=== PATIENT | female | born 1980 | race American Indian/Alaskan Native ===

== ENCOUNTER 2019-07-20 14:00 | Outpatient (CLI) | payer OTHER ==
--- NOTE | 2019-07-20 15:14 | Cat Scan Report ---
CT BRAIN: 07/20/2019 INDICATION / CLINICAL INFORMATION: DEMENTIA F03.90. COMPARISON: None available. FINDINGS: BRAIN/INTRACRANIAL STRUCTURES: Unenhanced CT images of the brain demonstrate no evidence of acute int racranial abnormality. Ventricles and sulci are within normal limits of size and shape for a patient of this age. There is no evidence of hemorrhage or mass. There are no abnormal extra-axial fluid collections. EXTRACRANIAL STRUCTURES: Unremarkable. IMPRESSION: Negative unenhanced CT of the brain. All CT scans at this location are performed using dose reduction to ALARA by means of automated expos ure control. Signer Name: Davi Virgen MD Signed: 07/20/2019 3:09 PM Workstation Name: [email or web address]
== END 2019-07-20 14:01 | disposition home or self-care (01) ==
LOC: CT 14:00
DX: Z01.89 Encounter for other specified special examinations (principal); F03.90 Unspecified dementia, unspecified severity, without behavioral disturbance, psychotic disturbance, mood disturbance, and anxiety
CPT/HCPCS: 70450